=== PATIENT | female | born 1945 | race Caucasian/White ===

== ENCOUNTER 2019-04-12 08:10 | Inpatient (IN) | payer MEDICARE, OTHER, BC ==
[2019-04-12] MEDS: morphine 4 MG/ML VIAL IV (08:30)
[2019-04-12 08:31] LABS: ADD MAN DIFF? NO
[2019-04-12 08:46] LABS: WHITE BLOOD COUNT 10.8 10^3/ul (4.8-10.8)
[2019-04-12 08:46] LABS: BASOPHILS % 0.3 % (0.0-2.0); EOSINOPHILS % 0.4 % (0.0-7.0); HEMATOCRIT 39.2 % (37.0-47.0); HEMOGLOBIN 12.8 g/dl (12.0-16.0); LYMPHOCYTES # 1.3 10^3/ul (0.8-2.9); LYMPHOCYTES % 12.2 % (15.0-51.0); MEAN CORPUSCULAR HGB CONC 32.7 g/dl (32.0-37.0); MEAN CORPUSCULAR VOLUME 88.9 fl (82.0-101.0); MEAN PLATELET VOLUME 9.9 fl (7.4-10.4); MONOCYTE # 0.5 10^3/ul (0.3-0.9); MONOCYTES % 4.5 % (0.0-11.0); NEUTROPHIL # 8.9 10^3/ul (1.6-7.5); NEUTROPHILS % 82.2 % (39.0-77.0); PLATELET COUNT 277 10^3/UL (140-415); RED BLOOD COUNT 4.41 10^6/ul (4.20-5.40)
[2019-04-12 09:07] LABS: ANION GAP 9 (5-13); BLOOD UREA NITROGEN 21 mg/dl (7-20); CALCIUM 9.7 mg/dl (8.4-10.2); CARBON DIOXIDE 28 mmol/L (21-31); CHLORIDE 104 mmol/L (97-110); CREATININE 0.86 mg/dl (0.44-1.00); GLUCOSE 139 mg/dl (70-220); POTASSIUM 4.2 mmol/L (3.5-5.1); SODIUM 141 mmol/L (135-144)
[2019-04-12 09:18] LABS: TROPONIN-I < 0.012 ng/ml (0.000-0.120)
[2019-04-12] MEDS: morphine 2 MG INJ IV (11:00)
[2019-04-12] MEDS ORDERED: ONDANSETRON 4 MG INJ IV (11:30)
[2019-04-12] MEDS: ACETAMINOPHEN 325 MG TAB PO (14:21)
[2019-04-12] MEDS ORDERED: hydrOXYzine HCL 10 MG TAB PO (16:00)
[2019-04-12] MEDS: HYDROmorphONE 0.5 MG/0.5 ML SYG IV (16:49)
[2019-04-12] MEDS ORDERED: DOCUSATE SODIUM 250 MG CAP PO (21:00)
[2019-04-12] MEDS: MONTELUKAST 10 MG TAB PO (21:29)
[2019-04-12] MEDS: GABAPENTIN 100 MG CAP PO (21:30)
[2019-04-12] MEDS: AMLODIPINE 5 MG TAB PO (21:30)
[2019-04-12] MEDS: HYDROCODONE/APAP (10/325) TAB PO (21:30)
[2019-04-12] MEDS: CALCIUM CARBONATE 500 MG CHEW TAB PO (21:30)
[2019-04-12] MEDS: ROPINIROLE 1 MG TAB PO (21:36)
[2019-04-12] MEDS: DOCUSATE CALCIUM 240 MG CAP PO (21:36)
[2019-04-13 06:02] LABS: ADD MAN DIFF? NO
[2019-04-13 06:04] LABS: BASOPHILS % 0.3 % (0.0-2.0); EOSINOPHILS # 0.1 10^3/ul (0.0-0.5); EOSINOPHILS % 1.7 % (0.0-7.0); HEMATOCRIT 33.5 % (37.0-47.0); LYMPHOCYTES # 1.6 10^3/ul (0.8-2.9); LYMPHOCYTES % 26.7 % (15.0-51.0); MEAN CORPUSCULAR HGB CONC 32.8 g/dl (32.0-37.0); MEAN CORPUSCULAR VOLUME 91.3 fl (82.0-101.0); MONOCYTE # 0.6 10^3/ul (0.3-0.9); MONOCYTES % 10.3 % (0.0-11.0); NEUTROPHIL # 3.6 10^3/ul (1.6-7.5); NEUTROPHILS % 60.7 % (39.0-77.0); PLATELET COUNT 239 10^3/UL (140-415); RED BLOOD COUNT 3.67 10^6/ul (4.20-5.40); RED CELL DISTRIBUTION WIDTH 13.1 % (11.5-14.5)
[2019-04-13 06:04] LABS: WHITE BLOOD COUNT 5.9 10^3/ul (4.8-10.8)
[2019-04-13 06:24] LABS: ANION GAP 7 (5-13); BLOOD UREA NITROGEN 22 mg/dl (7-20); CALCIUM 9.3 mg/dl (8.4-10.2); CARBON DIOXIDE 28 mmol/L (21-31); CHLORIDE 106 mmol/L (97-110); CREATININE 0.85 mg/dl (0.44-1.00); GLUCOSE 101 mg/dl (70-220); POTASSIUM 3.9 mmol/L (3.5-5.1); SODIUM 141 mmol/L (135-144)
[2019-04-13] MEDS: HYDROCODONE/APAP (10/325) TAB PO ×4 (06:36→23:49)
[2019-04-13 06:40] LABS: B-TYPE NATRIURETIC PEPTIDE 129 PG/ML (0-125)
[2019-04-13] MEDS: BENAZEPRIL 40 MG TAB PO (09:00)
[2019-04-13] MEDS: CALCIUM CARBONATE 500 MG CHEW TAB PO ×2 (10:42→20:54)
[2019-04-13] MEDS: GABAPENTIN 100 MG CAP PO ×2 (10:42→20:54)
[2019-04-13] MEDS: AMLODIPINE 5 MG TAB PO ×2 (10:42→20:54)
[2019-04-13] MEDS: DOCUSATE CALCIUM 240 MG CAP PO ×2 (10:42→20:54)
[2019-04-13] MEDS: ACETAMINOPHEN 325 MG TAB PO ×2 (14:35→21:00)
[2019-04-13] MEDS: MONTELUKAST 10 MG TAB PO (20:54)
[2019-04-13] MEDS: ROPINIROLE 1 MG TAB PO (20:54)
[2019-04-13] MEDS: ONDANSETRON 4 MG INJ IV (23:49)
[2019-04-14] MEDS ORDERED: MENTHOL/METH SALICYLATE 30 GM OINT TOP (01:00)
[2019-04-14] MEDS: BISACODYL 10 MG SUPP PR (01:15)
[2019-04-14] MEDS: MAGNESIUM HYDROXIDE 30ML CUP PO (05:31)
[2019-04-14 05:37] LABS: ADD MAN DIFF? NO
[2019-04-14 05:43] LABS: BASOPHILS % 0.3 % (0.0-2.0); EOSINOPHILS # 0.1 10^3/ul (0.0-0.5); EOSINOPHILS % 1.2 % (0.0-7.0); HEMATOCRIT 33.5 % (37.0-47.0); HEMOGLOBIN 10.8 g/dl (12.0-16.0); LYMPHOCYTES # 1.2 10^3/ul (0.8-2.9); LYMPHOCYTES % 19.4 % (15.0-51.0); MEAN CORPUSCULAR HEMOGLOBIN 29.1 pg (29.0-33.0); MEAN CORPUSCULAR HGB CONC 32.2 g/dl (32.0-37.0); MEAN CORPUSCULAR VOLUME 90.3 fl (82.0-101.0); MEAN PLATELET VOLUME 10.1 fl (7.4-10.4); MONOCYTE # 0.5 10^3/ul (0.3-0.9); MONOCYTES % 8.3 % (0.0-11.0); NEUTROPHIL # 4.3 10^3/ul (1.6-7.5); NEUTROPHILS % 70.5 % (39.0-77.0); PLATELET COUNT 228 10^3/UL (140-415); RED BLOOD COUNT 3.71 10^6/ul (4.20-5.40); RED CELL DISTRIBUTION WIDTH 12.6 % (11.5-14.5)
[2019-04-14] MEDS: MENTHOL/METH SALICYLATE 30 GM OINT TOP (05:54)
[2019-04-14 05:59] LABS: ANION GAP 7 (5-13); BLOOD UREA NITROGEN 19 mg/dl (7-20); CALCIUM 9.3 mg/dl (8.4-10.2); CARBON DIOXIDE 30 mmol/L (21-31); CHLORIDE 102 mmol/L (97-110); CREATININE 0.78 mg/dl (0.44-1.00); GLUCOSE 113 mg/dl (70-220); POTASSIUM 4.1 mmol/L (3.5-5.1); SODIUM 139 mmol/L (135-144)
[2019-04-14 06:15] LABS: B-TYPE NATRIURETIC PEPTIDE 83 PG/ML (0-125)
[2019-04-14] MEDS: AMLODIPINE 5 MG TAB PO ×2 (08:37→20:43)
[2019-04-14] MEDS: GABAPENTIN 100 MG CAP PO ×2 (08:37→20:51)
[2019-04-14] MEDS: DOCUSATE CALCIUM 240 MG CAP PO ×2 (08:37→20:42)
[2019-04-14] MEDS: CALCIUM CARBONATE 500 MG CHEW TAB PO ×2 (08:37→20:42)
[2019-04-14] MEDS: BENAZEPRIL 40 MG TAB PO (08:37)
[2019-04-14] MEDS: HYDROmorphONE 0.5 MG/0.5 ML SYG IV (14:24)
[2019-04-14] MEDS: ONDANSETRON 4 MG INJ IV (15:38)
[2019-04-14] MEDS: ACETAMINOPHEN 325 MG TAB PO (20:42)
[2019-04-14] MEDS: ROPINIROLE 1 MG TAB PO (20:51)
[2019-04-14] MEDS: MONTELUKAST 10 MG TAB PO (20:51)
[2019-04-15] MEDS: MENTHOL/METH SALICYLATE 30 GM OINT TOP (06:26)
[2019-04-15 07:40] LABS: ADD MAN DIFF? NO
[2019-04-15 07:47] LABS: WHITE BLOOD COUNT 4.8 10^3/ul (4.8-10.8)
[2019-04-15 07:47] LABS: BASOPHILS % 0.4 % (0.0-2.0); EOSINOPHILS # 0.1 10^3/ul (0.0-0.5); EOSINOPHILS % 2.3 % (0.0-7.0); HEMOGLOBIN 11.9 g/dl (12.0-16.0); LYMPHOCYTES # 1.2 10^3/ul (0.8-2.9); LYMPHOCYTES % 25.3 % (15.0-51.0); MEAN CORPUSCULAR HEMOGLOBIN 29.6 pg (29.0-33.0); MEAN CORPUSCULAR HGB CONC 33.1 g/dl (32.0-37.0); MEAN CORPUSCULAR VOLUME 89.6 fl (82.0-101.0); MONOCYTE # 0.4 10^3/ul (0.3-0.9); MONOCYTES % 9.3 % (0.0-11.0); NEUTROPHILS % 62.3 % (39.0-77.0); PLATELET COUNT 222 10^3/UL (140-415); RED BLOOD COUNT 4.02 10^6/ul (4.20-5.40); RED CELL DISTRIBUTION WIDTH 12.6 % (11.5-14.5)
[2019-04-15 08:05] LABS: ANION GAP 6 (5-13); BLOOD UREA NITROGEN 18 mg/dl (7-20); CARBON DIOXIDE 31 mmol/L (21-31); CHLORIDE 104 mmol/L (97-110); CREATININE 0.79 mg/dl (0.44-1.00); GLUCOSE 101 mg/dl (70-220); POTASSIUM 4.2 mmol/L (3.5-5.1); SODIUM 141 mmol/L (135-144)
[2019-04-15 08:10] LABS: B-TYPE NATRIURETIC PEPTIDE 65 PG/ML (0-125)
[2019-04-15] MEDS: GABAPENTIN 100 MG CAP PO ×2 (09:00→09:10)
[2019-04-15] MEDS: DOCUSATE CALCIUM 240 MG CAP PO ×2 (09:00→09:10)
[2019-04-15] MEDS: BENAZEPRIL 40 MG TAB PO (09:10)
[2019-04-15] MEDS: CALCIUM CARBONATE 500 MG CHEW TAB PO (09:10)
[2019-04-15] MEDS: AMLODIPINE 5 MG TAB PO (09:10)
[2019-04-15] MEDS: ACETAMINOPHEN 325 MG TAB PO (09:20)
== END 2019-04-15 17:20 | disposition home or self-care (01) | DRG 914 ==
LOC: E/R 08:10 → PP2 11:19
DX: S39.92XA Unspecified injury of lower back, initial encounter (principal); G89.11 Acute pain due to trauma; W06.XXXA Fall from bed, initial encounter; I10 Essential (primary) hypertension; K21.9 Gastro-esophageal reflux disease without esophagitis; E78.5 Hyperlipidemia, unspecified; M13.0 Polyarthritis, unspecified
CPT/HCPCS: 36415; 71045; 71100; 72128; 72131; 80048; 83880; 84484; 85025; 93005; 96374; 96375; 97116; 97161; 97530; 99285-25; G0378